=== PATIENT | female | born 1995 | race Caucasian/White ===

== ENCOUNTER 2018-03-04 20:59 | Outpatient (CLI) | payer MEDICAID ==
[~2018-03-04] VITALS: Ht 121.9 cm; Wt 45.0 kg
[2018-03-04] MEDS ORDERED: ACETAMINOPHEN 500 MG TAB PO ONE (21:16)
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
== END 2018-03-05 | disposition home or self-care (01) ==
LOC: EEVIPCON 20:59 → OBT 20:59 → L-D 21:00 → OBT 03-05
PROVIDERS: ATTEND Obstetrics & Gynecology Obstetrics
DX: O26.892 Other specified pregnancy related conditions, second trimester (principal); Z3A.25 25 weeks gestation of pregnancy; R10.30 Lower abdominal pain, unspecified
CPT/HCPCS: 76815; 76817; 81001; Z7500; Z7610; G0463